=== PATIENT | female | born 1975 | race Caucasian/White ===

== ENCOUNTER 2025-09-28 14:30 | Emergency (ER) | payer OTHER ==
[2025-09-28 14:55] VITALS: PULSE 78; RESP 18; TEMP 97.5; O2SAT 96
--- NOTE | 2025-09-28 15:03 | ERPHSYRPT ---
- History of Present Illness Patient Subjective Stated Complaint: Pt. states, "about an hour ago, I stepped down from a step onto gravel and rolled my foot. I have broken this foot before. It hurts to walk on it now." Triage Nursing Assessment: Pt. ambulates to room limping and favoring left foot. A&Ox3, Skin P/W/D, Resp. even unlabored, pulses present and strong in left lower ext. sensation intact distal to injury. Physician History: Left foot pain, patient was stepping down from the curb onto some gravel and twisted her foot, she has pain about the arch aspect of her left foot she is able to weight-bear on her heel only, she states have a history of stress fractures to this area in the past, she has some discoloration to the skin but that is not new. She has known history of psoriasis Method of Injury: twisted Occurred: just prior to arrival Quality: constant Severity of Pain-Max: moderate Severity of Pain-Current: moderate Lower Extremities Pain: other: left (foot) Modifying Factors: Improves With: nothing Associated Symptoms: unable to bear weight Allergies/Adverse Reactions: No Known Drug Allergies Allergy (Verified 09/28/25 14:44) Home Medications: Desvenlafaxine Succinate [Desvenlafaxine Succinate ER] 1 tab PO DAILY 09/28/25 [History] Desvenlafaxine Succinate [Desvenlafaxine Succinate ER] 50 mg PO DAILY 09/28/25 [History] Norethindrone 0.35 mg PO DAILY 09/28/25 [History] Hx Tetanus, Diphtheria Vaccination/Date Given: No Hx Influenza Vaccination/Date Given: No Hx Pneumococcal Vaccination/Date Given: No Travel Risk - International Travel Have you traveled outside of the country in past 3 weeks: No - Emerging Infectious Disease Are you exhibiting symptoms associated with any current EIDs: No - Past Medical History Pertinent Past Medical History: Yes Cardiac History: Hypertension Respiratory History: Asthma Psycho-Social History: Anxiety, Bipolar, Depression Other Medical History: Psoriasis, - Past Surgical History Past Surgical History: Yes Gastrointestinal: Cholecystectomy - Female History Hx Last Menstrual Period: 2 months ago Hx Now: No - Social History Smoking Status: Current every day smoker Exposure to second hand smoke: No Drug Use: none - Social Determinants of Health Will the patient participate in the screening: Declined to provide - Nursing Vital Signs Nursing Vital Signs: Initial Vital Signs Temperature 97.5 F 09/28/25 14:30 Pulse Rate 78 09/28/25 14:30 Respiratory Rate 18 09/28/25 14:30 Blood Pressure 158/83 09/28/25 14:30 O2 Sat by Pulse Oximetry 96 09/28/25 14:30 Pain Scale Pain Intensity 5 - Physical Exam Foot Exam: left foot: pain (deltoid ligament), soft tissue tenderness Mental Status Exam: alert, oriented x 3, cooperative Skin Exam: warm, dry, rash (Psoriasis) SpO2 Interpretation: normal SpO2: 96 Ordered Tests: Active Orders 24 hr Category Date Time Status FOOT (MINIMUM 3 VIEWS) Stat Exams 09/28/25 14:50 Completed - Progress Progress Note: 09/28/25 15:31 Discussed x-ray results, she would be placed in a walking boot, follow-up to podiatry - Departure Departure Disposition: Home Clinical Impression: Sprain of deltoid ligament of left ankle, initial encounter Condition: Stable Critical Care Time: No Referrals: KAREN DUBOSE DPM [ACTIVE STAFF, PODIATRY] - Follow up/PCP as directed Instructions: Foot Sprain (DC) Additional Instructions: Ice foot 10 to 15 minutes, 3-4 times a day, ibuprofen 2-3 tabs 3 times a day, Call podiatry for follow-up
--- NOTE | 2025-09-28 15:20 | XRAY ---
Indication: Pain following injury. Comparison: None 3 nonweightbearing views left foot demonstrates osteopenia and incidental tiny cuboid/small navicular accessory ossicles. No other bony, articular, or soft tissue abnormalities.
[2025-09-28 15:37] VITALS: BP 148/75
== END 2025-09-28 15:59 | disposition home or self-care (01) ==
LOC: ED 14:30
DX: S93.422A Sprain of deltoid ligament of left ankle, initial encounter (principal); X50.0XXA Overexertion from strenuous movement or load, initial encounter; I10 Essential (primary) hypertension; Z79.899 Other long term (current) drug therapy; Z72.0 Tobacco use

== ENCOUNTER 2025-11-05 18:30 | Emergency (ER) | payer OTHER ==
[2025-11-05 18:42] VITALS: TEMP 97.4; O2SAT 98
[2025-11-05] MEDS ORDERED: TORAdol 30 mg Injection ONE (18:53)
[2025-11-05] MEDS: TORAdol 30 mg Injection IM ONE (18:54)
--- NOTE | 2025-11-05 19:11 | ERPHSYRPT ---
- History of Present Illness Time Seen by Provider: 11/05/25 18:37 Patient Subjective Stated Complaint: Pt. states, "I have had surgery on my left knee in the past and it has really hurt ever since. They had me doing physical therapy but I quit doing it because it wasn't helping. The past 3 weeks the pain has gotten really bad and today I can't stand it. I can't put any weight on it." Triage Nursing Assessment: Pt. ambulates to room with an obvious limp. A&Ox4, Skin P/W/D, REsp. even unlabored. Able to move all four ext. No sensation defecits in left lower ext. No tenderness. No swelling or deformity. Physician History: Patient is a 50-year-old female who presents to the emergency department for evaluation of acute on chronic left knee pain with known history of arthritis to the same knee. She denies any new falls or traumas but states that her knee has been slightly more swollen and tender recently which she attributes to overuse and weather change. [facility] and states [facility] very difficult to get treatment through them so she decided to come here today because she cannot tolerate the pain. She is still ambulatory and weightbearing without difficulty. She is not on any chronic opiates for her symptoms. She is not having any warmth of the joint, fever, erythema, crepitus. She still is full range of motion of the joint. She denies any history of gout. She has no other injuries or complaints. Allergies/Adverse Reactions: No Known Drug Allergies Allergy (Verified 09/28/25 14:44) Home Medications: Desvenlafaxine Succinate [Desvenlafaxine Succinate ER] 1 tab PO DAILY 09/28/25 [History] Desvenlafaxine Succinate [Desvenlafaxine Succinate ER] 50 mg PO DAILY 09/28/25 [History] Norethindrone 0.35 mg PO DAILY 09/28/25 [History] Bupropion HCl Xl 150 mg [Wellbutrin XL 150 MG] 150 mg PO BID 11/05/25 [History] Hx Tetanus, Diphtheria Vaccination/Date Given: No Hx Influenza Vaccination/Date Given: No Hx Pneumococcal Vaccination/Date Given: No Travel Risk - International Travel Have you traveled outside of the country in past 3 weeks: No - Emerging Infectious Disease Are you exhibiting symptoms associated with any current EIDs: No - Past Medical History Pertinent Past Medical History: Yes Cardiac History: Hypertension Respiratory History: Asthma Psycho-Social History: Anxiety, Bipolar, Depression Other Medical History: Psoriasis, - Past Surgical History Past Surgical History: Yes Gastrointestinal: Cholecystectomy - Female History Hx Last Menstrual Period: 2 months ago Hx Now: No - Social History Smoking Status: Current every day smoker Exposure to second hand smoke: No Drug Use: none - Social Determinants of Health Will the patient participate in the screening: Declined to provide - Nursing Vital Signs Nursing Vital Signs: Initial Vital Signs Temperature 97.4 F 11/05/25 18:30 Pulse Rate 92 H 11/05/25 18:30 Respiratory Rate 18 11/05/25 18:30 Blood Pressure 147/88 11/05/25 18:30 O2 Sat by Pulse Oximetry 98 11/05/25 18:30 Pain Scale Pain Intensity 8 - Physical Exam SpO2: 98 Comments: GENERAL: Well-nourished, well-developed, appears stated age. Patient is non- toxic in appearance. No acute distress. HEENT: Head is atraumatic, normocephalic. Pupils equal, round, and reactive to light. Extraocular movements intact. No conjunctival injection. No external masses or lesions. Pharynx is clear, airway is patent. NECK: Supple, no meningeal signs. Trachea midline. HEART: Regular rate and rhythm. Symmetric radial pulses. No peripheral edema. LUNGS: Unlabored breathing with symmetric excursion bilaterally. No retractions or respiratory distress. MUSCULOSKELETAL: Normal muscle tone. Full range of motion of the left knee without restriction or laxity. Negative drawer test. Intact strength and sensation. No joint swelling or tenderness. No cyanosis or clubbing. SKIN: Warm, dry. No rashes, petechia, or purpura. Capillary refill <2 seconds. NEURO: Sensation grossly intact. No focal neurologic deficits. Speech is clear. PSYCHIATRIC: Patient is awake and alert. Appropriate behavior and judgment. Ordered Tests: Active Orders 24 hr Category Date Time Status [facility] Bandage Application -[facility] STAT Care 11/05/25 19:10 Completed KNEE (3 VIEWS) Stat Exams 11/05/25 18:50 Taken Medication Summary Discontinued Medications Generic Name Dose Route Start Last Admin Trade Name Freq PRN Reason Stop Dose Admin Ketorolac Tromethamine 30 mg 11/05/25 18:51 11/05/25 18:54 Ketorolac Tromethamine 30 Mg/Ml Inj IM 11/05/25 18:52 30 mg STAT ONE Administration Ketorolac Tromethamine Confirm 11/05/25 18:53 Ketorolac Tromethamine 30 Mg/Ml Inj Administered 11/05/25 18:54 Dose 30 mg .ROUTE .STK-MED ONE - Progress Progress Note: 11/05/25 21:12 The patient was evaluated by myself. History is obtained from the patient. Differential diagnosis considerations include but are not limited to fracture, dislocation, contusion, abrasion, effusion, septic joint, other. Following initial history and physical, patient was provided with Toradol 30 mg IM The following was ordered: Left knee x-ray Imaging was independently reviewed by myself and demonstrated no evidence of fracture or dislocation and no evidence of acute injury with mild effusion noted. The patient was provided with a prescription for Naprosyn 500 mg twice daily as needed and side effect profile and dosing regimen were discussed. The patient was instructed to follow-up with orthopedic surgery and PCP in 2 to 3 days for further evaluation and management. Strict return precautions were discussed, including the need to be evaluated immediately for any evidence of new or worsening concerning symptoms. The patient was provided with verbal and written discharge instructions and demonstrated understanding. The patient was then discharged in hemodynamically stable condition. - Departure Departure Disposition: Home Clinical Impression: Effusion, left knee Left knee pain Qualifiers: Chronicity: chronic Qualified Code(s): M25.562 - Pain in left knee Condition: Good Critical Care Time: No Referrals: NANDO [facility] [Primary Care Provider, [facility]] - Follow up/PCP as directed Instructions: Swollen Joints (DC) Additional Instructions: Follow-up with your preferred orthopedic surgeon within 1 week for further outpatient evaluation and management of your symptoms. You may benefit from a joint injection and physical therapy given your history of similar pain in your knee. In the meantime, take the prescribed medication to assist with swelling and pain. You may continue to ice, compress, and elevate your knee when not ambulating but may ambulate as tolerated. Please also follow-up with your PCP in 2-3 days for reevaluation. Prescriptions: Naproxen 500 mg [Naprosyn 500 MG] 500 mg PO BID #10 tablet
[2025-11-05 19:14] VITALS: BP 157/102; PULSE 79; RESP 17
--- NOTE | 2025-11-06 08:36 | XRAY ---
Indication: Pain. No known injury. Comparison: None 3 view left knee demonstrates minimal/mild tricompartmental degenerative changes greatest medial compartment, small nonspecific effusion, and tiny posterior fabella. No other bony, articular, or soft tissue abnormalities.
== END 2025-11-05 19:35 | disposition home or self-care (01) ==
LOC: ED 18:30
DX: M25.462 Effusion, left knee (principal); M25.562 Pain in left knee; I10 Essential (primary) hypertension; Z79.899 Other long term (current) drug therapy; Z72.0 Tobacco use